=== PATIENT | male | born 1970 | race Caucasian/White ===

== ENCOUNTER 2023-09-19 13:13 | Inpatient (IN) | payer BC, SELFPAY ==
[2023-09-19] VITALS (19 sets, daily range): BP systolic 120–139; BP diastolic 62–88; PULSE 87–93; BMI 27.5; BMI 27.2
--- NOTE | 2023-09-19 09:56 | ED.GENMED ---
History of Present Illness
General
Chief Complaint: Breathing Problem
Source: patient
Exam Limitations: none
Time Seen by Provider: 09/19/23 09:46
Travel History
Have you had any contact with someone who has COVID-19?: No
Do you have any symptoms of coronavirus? Fever > 100 degrees, chills, cough, shortness of breath, sore throat, loss of taste or smell, muscle aches, or headache?: No
History of Present Illness
History of Present Illness:
2 weeks of progressive shortness of breath and fatigue worse with exertion. Some lightheadedness. Has noted some dark stool that started 3 to 4 days ago. Did start iron therapy on his own 2 days ago. Has known anemia. Hemoglobin was 7.7 in
August. He had restarted Humira for his ulcerative colitis. Known obvious bloody stool or mucousy stool. No chest pain.
Past History
Past History
ED Past Medical History: Hypercholesterolemia and Other (Neurocardiogenic Syncope, Ulcerative colitis); Negative Asthma, HTN or NIDDM
ED Past Surgical History: Orthopedic
Social History
Tobacco: Former smoker
Alcohol: Occasional
Personal:
Living: with family
Employment: Employed
Family History
Family History: Other (Noncontributory)
Review of Systems
Review of Systems
All Other Systems: Not applicable
Constitutional: Reports fatigue
Cardiac: Denies chest pain or syncope
ABD/GI: Denies abdominal pain
Phy Exam
Physical Exam
Physical Exam:
GENERAL: Alert and oriented. Mildly winded at rest. Patient just received into the room. Obviously pale
EYE: Orbits normal.
NECK: Supple
CARDIAC: Regular rate and rhythm without any obvious murmurs.
LUNGS: Clear breath sounds,normal
ABDOMEN: Soft, without focal tenderness or distention. Minimal amount of stool but clearly test positive. Slightly dark
NEUROLOGICAL: Alert and oriented , grossly non-focal
SKIN: Warm and dry, very pale
MUSCULOSKELETAL: No edema,no deformity.Good color
PSYCH: Normal and appropriate interaction.
Scores
Heart Failure Risk
Heart Failure Risk Score: Not Applicable
Course
Orders/Labs/Results
Orders:
Orders
09/19/23 09:56
Electrocardiogram (*1) Stat
Reason for Study: Other
Other Reason for Exam: GI Bleed
Cardiac Monitoring- Treatment ONCE
EKG- Treatment ONCE
IV Insert/Care/Rem.- Treatment PRN
Pantoprazole [Protonix IV] 40 mg IV NOW STA
CR Chest - 2 Views Urgent
Comment:
Reason For Exam: sob
Pulse Ox/cont/shift [RESP] Stat
Quantity: 1
09/19/23 10:02
Type+Screen Urgent
Complete Blood Count/With Diff Urgent
Comprehensive Metabolic Panel Urgent
PTT Urgent
Prothrombin Time Urgent
09/19/23 10:50
* Blood Bank Products Urgent
Blood Bank Products: *Packed RBC Leuko(PRBC's)
Quantity: 2
Transfuse Today: Yes
Reason: Anemia
IV Insert/Care/Rem.- Treatment PRN
Abnormal Lab Results
09/19/23
10:02
RBC 2.82 L 10^6/uL
(4.70-6.10)
Hgb 5.4 L* g/dL
(13.0-18.0)
Hct 18.6 L* %
(39.0-52.0)
MCV 66.0 L fL
(80.0-94.0)
MCH 19.1 L pg
(27.0-31.0)
MCHC 29.0 L g/dL
(33.0-37.0)
RDW 17.2 H %
(11.5-14.5)
Plt Count 661 H 10^3/uL
(130-400)
Absolute Monos (auto) 0.9 H 10^3/uL
(0.1-0.6)
Absolute Eos (auto) 0.8 H 10^3/uL
(0-0.7)
Neutrophils % 39.3 L %
(42.2-75.2)
Monocytes % 11.0 H %
(1.7-9.3)
Eosinophils % 9.4 H %
(0-6)
PT 15.4 H Sec
(11.4-14.6)
09/19/23 10:02
09/19/23 10:02
Vital Signs
Initial and Last Documented VS:
Initial Vital Signs
Temp Pulse Resp BP Pulse Ox
98.2 F 93 20 138/71 100
09/19/23 09:42 09/19/23 09:42 09/19/23 09:42 09/19/23 09:42 09/19/23 09:42
Last Documented Vital Signs
Temp Pulse Resp BP Pulse Ox
98.2 F 69 25 131/72 96
09/19/23 09:42 09/19/23 11:15 09/19/23 11:15 09/19/23 10:00 09/19/23 11:15
MDM/Problems Addressed
Differential Diagnosis Includes:
Patient with significant dyspnea on exertion and fatigue purely although cardiac and respiratory etiologies have to be contemplated, highly suspect this is a GI bleed with anemia issue. Stool test positive. Last hemoglobin in August was 7.7.
Patient is very pale. Will give a dose of Protonix. Type and screen. Workup in progress
*Radiology
Radiology exam reviewed: preliminary read by ED provider (Negative) and radiology read reviewed (Negative)
*Pulse Oximetry
Patient hypoxic: no
*EKG
Interpreted by ED Provider?: Yes
Interpretation: normal
Comparison EKG: no changes
Heart Rate: 76
Rate: normal
Rhythm: sinus
[place]: normal axis
Interval: normal interval
QRS Pattern: normal QRS
Ischemia: no ischemia
*Int[employer] Interpretation
Rate: normal
Interpretation: normal
Heart Rate: 77
Rhythm: sinus
*Critical Care Note
Total Time (30-74mins, 75-104mins- exclusive of procedures): 20
Data Reviewed
Review of Other/Old Records Reveals: Labs, Records and Testing
Update Note
Update Note:
Patient with severe symptomatic anemia. PPI ordered. Consent for blood. 2 units of blood ordered.
ED Attending Note
-
Portions of this chart may have been created with voice recognition software.� Occasional wrong word or��sound alike� substitutions may have occurred due to the inherent limitations of voice recognition software.
Discharge Plan
Departure
Patient Disposition: Admit
Date of Disposition: 09/19/23
Time of Disposition: 10:51
Presentation/result/management discussed w/ accepting MD/DO: Hospitalist
Discharge Problem:
Severe symptomatic anemia, UPPER GI BLEED
Prescriptions:
No Action
venlafaxine 150 mg Capsule,Extended Release 24hr
150 mg PO DAILY
bupropion HCl 75 mg Tablet
75 mg PO DAILY
ibuprofen 200 mg Tablet
600 mg PO DAILYPRN PRN (Reason: mild pain)
Humira(CF) Pen 40 mg/0.4 mL pen injector kit
40 mg SC Q2W
Blood Builder Iron Minis
1 tab PO DAILY
Referrals:
Sylvie Hernandez CRNP [Family Provider] -
Interventions
Interventions:
*Risk Screen - Suicide Last Done: 09/19/23 09:52
*General Assessment Last Done: 09/19/23 09:52
*Neglect/Abuse Screening Last Done: 09/19/23 09:52
ED- Fall Risk Assessment Last Done: 09/19/23 09:52
*ED COVID-19 Vaccine History Last Done: 09/19/23 09:42
ED- Cardiac Assessment Last Done: 09/19/23 09:52
ED- Pulmonary Assessment Last Done: 09/19/23 09:52
Discharge Date and Time
Print Language: ROMANSH
[2023-09-19] MEDS: PROTONIX IV 40 MG IV ×2 (10:20→19:57)
[2023-09-19 10:35] LABS: % Basophils 1.4 % (0-2); % Eosinophils 9.4 % (0-6); % Immature Granulocytes 0.5 % (0-0.5); % Lymphocytes 38.4 % (20.5-51.1); % Neutrophils 39.3 % (42.2-75.2); Absolute Basophils 0.1 10^3/uL (0-0.2); Absolute Eosinophils 0.8 10^3/uL (0-0.7); Absolute Lymphocytes 3.2 10^3/uL (1.2-3.4); Absolute Monocytes 0.9 10^3/uL (0.1-0.6); Absolute Neutrophils 3.3 10^3/uL (1.4-6.5); Mean Corpuscular Hgb 19.1 pg (27.0-31.0); Mean Platelet Volume 8.7 fL (7.4-10.4); Nucleated Red Blood Cells % 0.2 % (-); Platelet Count 661 10^3/uL (130-400); Red Blood Cell Count 2.82 10^6/uL (4.70-6.10); Red Cell Dist. Width 17.2 % (11.5-14.5); White Blood Cell Count 8.3 10^3/uL (4.8-10.8)
[2023-09-19 10:39] LABS: Hematocrit 18.6 % (39.0-52.0); Hemoglobin 5.4 g/dL (13.0-18.0)
[2023-09-19 10:44] LABS: ALT (SGPT) 13 U/L (0-50); AST (SGOT) 19 U/L (17-59); Albumin 3.6 g/dl (3.5-5.0); Alkaline Phosphatase 102 U/L (38-126); Blood Urea Nitrogen 11 mg/dl (9-20); Calcium 8.9 mg/dl (8.4-10.2); Carbon Dioxide 22 mmol/L (22-30); Chloride 106 mmol/L (98-107); Estimated Creatinine Clearance 100 ml/min; Glucose 95 mg/dl (70-99); Potassium 4.2 mmol/L (3.5-5.1); Sodium 137 mmol/L (135-145); Total Bilirubin 0.4 mg/dl (0.2-1.3); Total Protein 6.4 g/dl (6.3-8.2); eGFR > 60.00
[2023-09-19 10:49] LABS: INR 1.22; PT 15.4 Sec (11.4-14.6)
[2023-09-19 10:50] LABS: APTT 31.9 Sec (23.4-35.0)
--- NOTE | 2023-09-19 12:26 | CON.GI ---
Addendum entered and electronically signed by David Putnam MD 09/19/23 14:18:
I saw and examined the patient.
The GROUT MACHINE OPERATOR or PA's note was reviewed and I agree with the note.
Comment: 53yo male hx UC previously well controlled on Humira until insurance issues led to interruption for 2 months. During this time he had recurrence of bloody diarrhea. Treated w steroid taper. Restarted Humira x 2 doses. Now presents with
SOB, LEUNG and Hgb 5.4 BMs currently normal w/o bleeding. Denies abd pain. ESR 87.
REC:
Transfuse PRBC
Anemia due to bleeding from interruption of Humira
Check stool r/o infxn
If evidence of ongoing flare sx, restart steroids
Otherwise, continue Humira and f/u with Dr Borrero in the office
Original Note:
Consultation
-
Date/Time Consultation Requested: 09/19/23 1215
Date/Time Consultation Performed: 09/19/23 1225
Requesting Provider: Armand Wild MD
Performing Provider: SHIRLEY Ace, David Putnam MD
Reason for Consultation: anemia hx UC
Medical History
Chief Complaint / HPI
Chief Complaint: shortness of breath
History of Present Illness:
Pt is a 53yo presents with hx esophageal dilation with noted stricture and schatzki's ring in 2021, renal stones, anxiety, depression and ulcerative colitis diagnosed in 2016 with rectal bleeding. He was initially on Lialda and Canasa and switch
to Humira in 2016. Last colonoscopy 2020 with no active disease. He called in August as was off Humira due to insurance issues with paperwork not going through for about 2 months. Pt was recommended stool studies but did not complete and was placed
on steroids. He took for several weeks now off. He restart Humira about 2-3 weeks ago with last dose on Sunday. Pt now presents with shortness of breath and fatigue with noted drop in hbg to 5.4 with MCV 66, platelets 661.
Pt states stool actually now improving. Only one blood stool over last week and stool looked black. He denies NSAID use other than dose yesterday for neck pain. Pt denies dysphagia, GERD, nausea, vomiting, abdominal pain (but feels like may
have hernia with mild discomfort), or constipation. Pt will typically have 2-3 stools per day but noted hourly stools with flare.
Past Medical History
Past Medical History: Psychiatric (anxiety/depression) and Other (ulcerative colitis esophageal stricture, schatzki's ring with prior esophageal dilation 2021, renal stones)
Social History
Tobacco: Non-Smoker
Alcohol: Occasional
Drug: None
Personal:
Living: With Family
Employment: Employed
Family History
Family History: Adopted
Allergies / Home Medications
Allergy/AdvReac Type Severity Reaction Status Date / Time
Penicillins Allergy Unknown Verified 09/19/23 09:44
�Medication �Instructions �Recorded
Blood Builder Iron Minis 1 tab PO DAILY 09/19/23
adalimumab 40 mg/0.4 mL 40 mg SC Q2W 09/19/23
subcutaneous pen kit (Humira(CF)
Pen)
bupropion HCl 75 mg tablet 75 mg PO DAILY 09/19/23
ibuprofen 200 mg tablet 600 mg PO DAILYPRN PRN mild pain 09/19/23
venlafaxine 150 mg 150 mg PO DAILY 09/19/23
capsule,extended release 24 hr
Review of Systems
-
History Source: Patient
Constitutional: Reports Fatigue
EENT: Reports No Symptoms
Respiratory: Reports No Symptoms
Abdomen/GI: Reports Abdominal Pain, Diarrhea, Bloody Stools and Black Stools
Vital Signs
Temp Pulse Resp BP Pulse Ox
98.2 F 87 23 134/71 100
09/19/23 12:07 09/19/23 12:07 09/19/23 12:07 09/19/23 12:07 09/19/23 12:07
Physical Exam
Exam
General: Well Developed, Well Nourished and No Apparent Distress
HEENT: Normocephalic and Anicteric
Respiratory: Clear
Cardiac: Regular Rhythm
GI: Soft, Non Tender and Non Distended
Rectal: Other (dark heme + per ER)
Musculoskeletal: No Clubbing and No Cyanosis
Skin: Warm and Dry
Neuro: Awake, Alert and AO x 3
Psych: Calm
Results
WBC 8.3 10^3/uL (4.8-10.8) 09/19/23 10:02
Hgb 5.4 g/dL (13.0-18.0) L* 09/19/23 10:02
Hct 18.6 % (39.0-52.0) L* 09/19/23 10:02
MCV 66.0 fL (80.0-94.0) L 09/19/23 10:02
Plt Count 661 10^3/uL (130-400) H 09/19/23 10:02
Absolute Neuts (auto) 3.3 10^3/uL (1.4-6.5) 09/19/23 10:02
PT 15.4 Sec (11.4-14.6) H 09/19/23 10:02
INR 1.22 09/19/23 10:02
APTT 31.9 Sec (23.4-35.0) 09/19/23 10:02
Sodium 137 mmol/L (135-145) 09/19/23 10:02
Potassium 4.2 mmol/L (3.5-5.1) 09/19/23 10:02
Chloride 106 mmol/L (98-107) 09/19/23 10:02
Carbon Dioxide 22 mmol/L (22-30) 09/19/23 10:02
BUN 11 mg/dl (9-20) 09/19/23 10:02
Creatinine 0.9 mg/dL (0.7-1.3) 09/19/23 10:02
Calcium 8.9 mg/dl (8.4-10.2) 09/19/23 10:02
Total Bilirubin 0.4 mg/dl (0.2-1.3) 09/19/23 10:02
AST 19 U/L (17-59) 09/19/23 10:02
ALT 13 U/L (0-50) 09/19/23 10:02
Alkaline Phosphatase 102 U/L (38-126) 09/19/23 10:02
Diagnostic Image Results:
2018 CT a/p without
Impression: 2-mm proximal right ureteral stone, with no current evidence of hydronephrosis nor obstruction. New.
Partially calcified nonobstructing right renal stone versus renal mass. A benign proteinaceous cyst certainly is possibility. This would better be evaluated by a non-urgent MRI exam of the kidneys. Probably new. Difficult to be definitive being
the prior study contained IV contrast.
Mild diverticulosis. Stable.
Prior GI Procedures:
EGD: 11/14/21 kelly - Normal mucosa was found in the entire esophagus.
Biopsied for evaluation of eosinophilic esophagitis.
- Low-grade of narrowing, non-obstructing and moderate
Schatzki ring. Dilated with 18 mm Savary device.
- Normal stomach. Biopsied for Helicobacter pylori
testing.
- Normal examined duodenum. Biopsied for evaluation of
celiac disease.
bx reactive gastritis , esophagus mild acanthosis and mild chronic inflammation neg metaplasia, Neg H pylori
Colonoscopy: 04/14/21 salguti - Normal mucosa in the entire examined colon. Several
biopsies were obtained in the rectum, in the sigmoid
colon, in the descending colon, in the transverse
colon and in the ascending colon for evaluation of
inflammatory bowel disease.
- Your ulcerative colitis appears to be in remission.
- Minimal diverticulosis in the sigmoid colon.
bx Quiescent colitis
Assessment / Plan
-
Pt is a 53yo presents with hx esophageal dilation with noted stricture and schatzki's ring in 2021, renal stones, anxiety, depression and ulcerative colitis diagnosed in 2016 with rectal bleeding. He was initially on Lialda and Canasa and switch
to Humira in 2016. Last colonoscopy 2020 with no active disease. He called in August as was off Humira due to insurance issues with paperwork not going through for about 2 months. Pt was recommended stool studies but did not complete and was placed
on steroids. He took steroids for several weeks now off. He restart Humira about 2-3 weeks ago with last dose on Sunday. Pt now presents with shortness of breath and fatigue with noted drop in hbg to 5.4 with MCV 66, platelets 661.
-symptomatic microcytic anemia
-ulcerative colitis with recent lapse of treatment with flare with bloody stools now off steroids and back on Humira
-recent black stools
-thrombocytosis
other medical problems:
esophageal dilation with noted stricture schatzki's ring in 2021
renal stones
anxiety/depression
PLAN:
etiology of anemia related to recent UC flare with lapse in treatment vs other
pt symptoms have been improving
will check stools studies
add fecal nataliya, CRP and ESR(baseline fecal nataliya 62 in January, CRP 2 in November)
monitor symptoms to see if need to restart steroids
11/2022 Humira drug level 4.2 and ab level 44
agree with transfusion, trend hbg
add iron studies, B12, folate to see if benefit from iron
cont PPI
NSAID avoidance
follow up with Dr. Borrero after discharge
will follow
-
-
Thank you for consultation and allowing me to participate in the patient's care. Please call the electronic publications specialist GI physician during the after hours with any questions or concerns.
--- NOTE | 2023-09-19 12:39 | HPS.HSE ---
Family Physician
-
Family Physician: SHIRLEY Weldon
Chief Complaint
-
Exertional shortness of breath and fatigue.
History of Present Illness
Patient has been experiencing exertional shortness of breath, fatigue and lightheadedness for the last 2 weeks.
In ER we discovered he has severe anemia.
Patient has history of ulcerative colitis. In the last 1 to 2 months there was issue with getting Humira on board and he was on steroids because there was a flare. He just finished steroids a week ago.
He does bleed because of ulcerative colitis mostly red blood along with diarrhea but in the last 1 to 2 weeks he started to notice black stools.
No prior history of GI bleed requiring blood transfusion. He has a history of stomach ulcer apparently diagnosed 2 years ago. He does take as needed ibuprofen but not on a daily basis. You use the last 2 days because of the headache.
Medical History
Past Medical History
Past Medical History: Reports Asthma and Other (Ulcerative colitis, neurocardiogenic syncope)
Past Surgical History: Reports Orthopedic (Femur fracture post fall)
Social History
Tobacco: Non-smoker
Alcohol: Occasional
Drug: None
Living: With Family
Employment: Employed
Family History
Family History: Not pertinent
Allergies / Home Medications
Allergies reflects when Allergies were last updated in [email or web address].
Home Medications with original date entered in [email or web address]
Allergy/Medication List:
Allergies
Allergy/AdvReac Type Severity Reaction Status Date / Time
Penicillins Allergy Unknown Verified 09/19/23 09:44
Home Medications
Blood Builder Iron Minis 1 tab PO DAILY 09/19/23
adalimumab 40 mg/0.4 mL subcutaneous pen kit (Humira(CF) Pen) 40 mg SC Q2W 09/19/23
bupropion HCl 75 mg tablet 75 mg PO DAILY 09/19/23
ibuprofen 200 mg tablet 600 mg PO DAILYPRN PRN mild pain 09/19/23
venlafaxine 150 mg capsule,extended release 24 hr 150 mg PO DAILY 09/19/23
Review of Systems
-
A 12 point ROS was completed and negative except as noted: Yes
Physical Exam
Vital Signs
Vital Signs
Temp Pulse Resp BP Pulse Ox
98.2 F 67 18 122/62 98
09/19/23 12:25 09/19/23 12:25 09/19/23 12:25 09/19/23 12:25 09/19/23 12:25
Physical Exam
General: No Apparent Distress
HEENT: Moist mucous membranes
Respiratory: Clear
Cardiac: S1/S2 and Regular Rhythm; No Murmur
GI: Soft, Non Distended, Normal Bowel Sounds and Tender (mild discomfort in llq but no rebound or guarding)
Rectal: Black ( heme testing performed by ER physician)
Neuro: AO x 3
Psych: Calm
Laboratory Results
-
09/19/23 10:02
09/19/23 10:02
Laboratory Results
PT 15.4 Sec (11.4-14.6) H 09/19/23 10:02
INR 1.22 09/19/23 10:02
APTT 31.9 Sec (23.4-35.0) 09/19/23 10:02
Total Bilirubin 0.4 mg/dl (0.2-1.3) 09/19/23 10:02
AST 19 U/L (17-59) 09/19/23 10:02
ALT 13 U/L (0-50) 09/19/23 10:02
Alkaline Phosphatase 102 U/L (38-126) 09/19/23 10:02
Data Reviewed
-
Lab Data: Labs Reviewed by me
Impression/Plan
-
Acute severe symptomatic anemia secondary to GI bleed-transfuse PRBC and follow H&H closely. Check iron studies and replete iron if deficient.
GI bleeding-suspect subacute. Hemodynamically stable. Start on clear liquids diet. Start on a PPI IV twice daily. Consult gastroenterology. Rule out upper GI source based on history.
Thrombocytosis-suspect secondary to anemia; rule out iron deficiency.
Ulcerative colitis without current flare-on Humira as outpatient.
Depression-continue with his home medication.
[2023-09-19 13:27] LABS: Erythrocyte Sed Rate 87 mm/hour (0-20)
[2023-09-19 14:37] LABS: Iron 32 ug/dl (49-181)
[2023-09-19 14:46] LABS: Percent Saturation 7 % (20-50); Total Iron Binding Capacity 448 ug/dl (261-462)
[2023-09-19 15:04] LABS: Ferritin 4.9 ng/ml (17.9-464.0)
[2023-09-19 15:35] LABS: Folate 10.1 ng/ml (2.76-20); Vitamin B12 409 pg/ml (239-931)
[2023-09-19 15:37] LABS: Reticulocyte Count 2.6 % (0.4-2.8)
[2023-09-19] MEDS: NSS (PRESERVATIVE FREE) 10 ML IV (19:57)
[2023-09-20 03:56] VITALS: BP 108/84; BP 118/71; BP 125/76; PULSE 81; PULSE 87; PULSE 92
[2023-09-20 07:55] VITALS: BP 115/77; BP 119/73; BP 99/73; PULSE 68; PULSE 80; PULSE 92
[2023-09-20 08:26] LABS: Hematocrit 25.8 % (39.0-52.0); Mean Corp Hgb Conc. 30.6 g/dL (33.0-37.0); Mean Corpuscular Hgb 21.4 pg (27.0-31.0); Mean Corpuscular Volume 69.7 fL (80.0-94.0); Mean Platelet Volume 8.8 fL (7.4-10.4); Platelet Count 683 10^3/uL (130-400); Red Cell Dist. Width 20.8 % (11.5-14.5); White Blood Cell Count 10.1 10^3/uL (4.8-10.8)
[2023-09-20 08:32] LABS: Hemoglobin 7.9 g/dL (13.0-18.0)
[2023-09-20] MEDS: EFFEXOR XR 150 MG PO (08:32)
[2023-09-20] MEDS: WELLBUTRIN REGULAR RELEASE 75 MG PO (08:32)
[2023-09-20] MEDS: PROTONIX IV 40 MG IV ×2 (08:33→19:15)
[2023-09-20] MEDS: NSS (PRESERVATIVE FREE) 10 ML IV ×2 (08:33→19:15)
[2023-09-20 09:27] LABS: Blood Urea Nitrogen 8 mg/dl (9-20); Carbon Dioxide 23 mmol/L (22-30); Chloride 108 mmol/L (98-107); Estimated Creatinine Clearance 100 ml/min; Glucose 92 mg/dl (70-99); Potassium 4.5 mmol/L (3.5-5.1); Sodium 137 mmol/L (135-145); eGFR > 60.00
--- NOTE | 2023-09-20 09:56 | W.PN.HOSP.TC ---
Today's Communication/Plan
-
Advance diet if no plan for Endo eval
DC planning
Assessment / Plan
Assessment / Plan
Acute severe symptomatic anemia secondary to GI bleed-transfused 2 PRBC with improved HH and symptoms.
Severe iron deficiency - start on IV venofer ; needs to follow with PCP to complete the series of IV iron.
GI bleeding-suspect subacute. Hemodynamically stable. Started on clear liquids diet -tolerating. On PPI IV twice daily - switch/change per GI. GI input noted-will advance diet if no plans for endoscopy eval.
Thrombocytosis-suspect secondary to anemia iron deficiency-follow as outpatient
Ulcerative colitis without current flare-on Humira as outpatient.
Depression-continue with his home medication.
When okay from GI will start a discharge plan.
Anticipated Discharge: Today
Subjective/Interval History
-
Date of Service: September 20, 2023
Patient without any specific complaints today. Tolerating clear liquid diet. No abdominal pain. No diarrhea.
No fever or chills.
Objective Data
-
Labs:
Laboratory Results
09/20/23
07:44
WBC 10.1
Hgb 7.9 L D
Hct 25.8 L
Plt Count 683 H
Sodium 137
Potassium 4.5
Chloride 108 H
Carbon Dioxide 23
BUN 8 L
Creatinine 0.9
Glucose 92
Calcium 9.0
Vital Signs:
Vital Signs
Temp Pulse Resp BP Pulse Ox
98.1 F 68 18 99/73 98
09/20/23 07:55 09/20/23 07:55 09/20/23 07:55 09/20/23 07:55 09/20/23 07:55
I&O
09/19/23 09/20/23 09/21/23
06:59 06:59 06:59
Intake Total 1460 / 1460
Output Total 1720 / 1720
Balance -260 / -260
Review of Systems
-
Constitutional: Denies Fever
EENT: Denies Sore Throat
Respiratory: Denies Cough or Trouble Breathing
Cardiac: Denies Chest Pain
Neuro: Denies Dizzy
Physical Exam
-
General: No Apparent Distress
HEENT: Moist Mucous Membranes
Respiratory: Clear to Auscultation
Cardiac: Regular Rhythm and S1/S2
GI: Soft, Nontender, Nondistended and Normal Bowel Sounds
Neuro: AO x 3
Psych: Calm
Data Reviewed
-
Labs: Labs Reviewed by me
--- NOTE | 2023-09-20 10:55 | W.PN.GI.CBS2 ---
Today's Communication / Plan
-
Feels well. Hgb up to 7.9
Advance diet
OK to dc
F/U with Dr Borrero after d/c to see how he is doing back on Humira
Anemia likely due to flare that occurred while he was off Humira for 2 months
Assessment / Plan
-
Pt is a 53yo presents with hx esophageal dilation with noted stricture and schatzki's ring in 2021, renal stones, anxiety, depression and ulcerative colitis diagnosed in 2016 with rectal bleeding. He was initially on Lialda and Canasa and switch
to Humira in 2016. Last colonoscopy 2020 with no active disease. He called in August as was off Humira due to insurance issues with paperwork not going through for about 2 months. Pt was recommended stool studies but did not complete and was placed
on steroids. He took steroids for several weeks now off. He restart Humira about 2-3 weeks ago with last dose on Sunday. Pt now presents with shortness of breath and fatigue with noted drop in hbg to 5.4 with MCV 66, platelets 661.
-symptomatic microcytic anemia
-ulcerative colitis with recent lapse of treatment with flare with bloody stools now off steroids and back on Humira
-recent black stools
-thrombocytosis
other medical problems:
esophageal dilation with noted stricture schatzki's ring in 2021
renal stones
anxiety/depression
Subjective
Subjective
Date of Service: September 20, 2023
No complaints. Feels better after transfusion
Objective
Data Reviewed
Laboratory Data:
Laboratory Results
09/20/23 07:44
09/20/23 07:44
Laboratory Results
PT 15.4 Sec (11.4-14.6) H 09/19/23 10:02
INR 1.22 09/19/23 10:02
APTT 31.9 Sec (23.4-35.0) 09/19/23 10:02
Total Bilirubin 0.4 mg/dl (0.2-1.3) 09/19/23 10:02
AST 19 U/L (17-59) 09/19/23 10:02
ALT 13 U/L (0-50) 09/19/23 10:02
Alkaline Phosphatase 102 U/L (38-126) 09/19/23 10:02
Vital Signs and I&O:
Vital Signs
Temp Pulse Resp BP Pulse Ox
98.1 F 68 18 99/73 98
09/20/23 07:55 09/20/23 07:55 09/20/23 07:55 09/20/23 07:55 09/20/23 07:55
I&O
09/19/23 09/20/23 09/21/23
06:59 06:59 06:59
Intake Total 1460 / 1460
Output Total 1720 / 1720
Balance -260 / -260
Physical Exam
Physical Exam
GI: Soft, Non Distended and Non Tender
--- NOTE | 2023-09-20 12:24 | PN.CDI ---
CDI
- -
CDI:
Physician Documentation Request
Admit Date: 09/19/23 13:13
Dear Doctor Junito
ED note states pt presented with shortness of breath and fatigue, some lightheadedness. He noted some dark stool starting 3-4 days prior to arrival.
Exam at that time showed slightly dark minimal of stool that was 'clearly test positive'
09/19 GI note states 'ulcerative colitis with recent lapse of treatment with flare with bloody stools now off steroids and back on Humira'
09/19 hospitalist note states 'Ulcerative colitis without current flare'
In an attempt to clarify potential conflicting documentation, please clarify:
ulcerative colitis with flare
ulcerative colitis without flare
Other
Use of terms such as suspected, likely, concern for, or probable (associated with a specific diagnosis that is being evaluated, monitored, or treated as if it exists) are acceptable and can be coded in the inpatient setting, when documented at the
time of discharge.
Thank you,
Samantha Beatty RN, BSN
CDI Specialist
tiger text
Please use your independent medical judgment in providing your response.
[2023-09-20 12:30] VITALS: BP 121/75; BP 125/79; BP 130/82; PULSE 83; PULSE 89; PULSE 92
[2023-09-20] MEDS: FERRLECIT 110 MG IV (13:44)
[2023-09-20 15:55] VITALS: BP 117/71
--- NOTE | 2023-09-20 17:04 | W.DS.TRANS ---
DC Summary - Cargo Service Agent
-
Discharge Instructions:
Discharge Diagnosis/Procedures symptomatic anemia from ulcerative colitis s/p
transfusion; iron deficiency
Diet Regular
Activity As tolerated
Driving Restrictions As prior to admission
Bathing Restrictions None
Blood Work BMP in 1-2 weeks arrange through your PCP
Instructions:
Stand-Alone Forms:
Changes to Home Medications: Yes
Discharge Medications:
DC Medications w/original date entered in [facility]
Blood Builder Iron Minis 1 tab PO DAILY 09/19/23
adalimumab 40 mg/0.4 mL subcutaneous pen kit (Humira(CF) Pen) 40 mg SC Q2W ULCERATIVE COLITIS 09/19/23
bupropion HCl 75 mg tablet 75 mg PO DAILY Mental Health/Anxiety 09/19/23
venlafaxine 150 mg capsule,extended release 24 hr 150 mg PO DAILY Mental Health/Anxiety 09/19/23
Home Medication Changes
DC - ibuprofen
Pending Results: No
[2023-09-20 19:55] VITALS: BP 110/66; BP 117/73; BP 95/68; PULSE 89; PULSE 95
[2023-09-20 23:55] VITALS: BP 107/77; BP 118/76; BP 121/78; PULSE 80; PULSE 81; PULSE 85
[2023-09-21 07:55] VITALS: BP 130/78
[2023-09-21] MEDS: NSS (PRESERVATIVE FREE) 10 ML IV (08:39)
[2023-09-21] MEDS: EFFEXOR XR 150 MG PO (08:39)
[2023-09-21] MEDS: WELLBUTRIN REGULAR RELEASE 75 MG PO (08:39)
[2023-09-21] MEDS: PROTONIX IV 40 MG IV (08:40)
--- NOTE | 2023-09-21 09:45 | W.PN.HOSP.TC ---
Addendum entered and electronically signed by Elyse Grant MD 09/21/23 11:32:
note should read--UC with flare
Original Note:
Today's Communication/Plan
-
d/c
Assessment / Plan
Assessment / Plan
Acute severe symptomatic anemia secondary to GI bleed-transfused 2 PRBC with improved HH and symptoms.
Severe iron deficiency - start on IV venofer ; needs to follow with PCP to complete the series of IV iron.
GI bleeding-suspect subacute. Hemodynamically stable. Started on clear liquids diet -tolerating. On PPI IV twice daily - switch/change per GI. GI input noted-will advance diet if no plans for endoscopy eval.
Thrombocytosis-suspect secondary to anemia iron deficiency-follow as outpatient
Ulcerative colitis without current flare-on Humira as outpatient.
Depression-continue with his home medication.
GI cleared for d/c 09/19--no order placed--d/c today
Anticipated Discharge: Today
Subjective/Interval History
-
Date of Service: September 21, 2023
pt was supposed to be d/c 09/19--no order was placed so pt stayed overnight
Objective Data
-
Vital Signs:
max temp for 24 hours
09/20/23
15:55
Temp 98.2 F
Vital Signs
Temp Pulse Resp BP Pulse Ox
98.0 F 60 18 130/78 94
09/21/23 07:55 09/21/23 07:55 09/21/23 07:55 09/21/23 07:55 09/21/23 07:55
I&O
09/20/23 09/21/23 09/22/23
06:59 06:59 06:59
Intake Total 1460 / 1460 1260 / 1260
Output Total 1720 / 1720 1930 / 1930
Balance -260 / -260 -670 / -670
Review of Systems
-
All other systems: Reviewed and negative
Physical Exam
-
Respiratory: Clear to Auscultation; Negative Wheezes or Rhonchi
Cardiac: Regular Rhythm and S1/S2; Negative Murmur
GI: Soft, Nontender, Nondistended and Normal Bowel Sounds
--- NOTE | 2023-09-21 10:21 | PN.CDI ---
CDI
- -
CDI:
Physician Documentation Request
Admit Date: 09/19/23 13:13
Dear Doctor Juanita,
ED note states pt presented with shortness of breath and fatigue, some lightheadedness. He noted some dark stool starting 3-4 days prior to arrival.
Exam at that time showed slightly dark minimal of stool that was 'clearly test positive'
09/19 GI note states 'ulcerative colitis with recent lapse of treatment with flare with bloody stools now off steroids and back on Humira'
09/20 hospitalist note states 'Ulcerative colitis without current flare'
In an attempt to clarify potential conflicting documentation, please clarify:
ulcerative colitis with flare
ulcerative colitis without flare
Other
Use of terms such as suspected, likely, concern for, or probable (associated with a specific diagnosis that is being evaluated, monitored, or treated as if it exists) are acceptable and can be coded in the inpatient setting, when documented at the
time of discharge.
Thank you,
Samantha Beatty RN, BSN
CDI Specialist
tiger text
Please use your independent medical judgment in providing your response.
[2023-09-21 12:04] VITALS: BP 112/62
--- NOTE | 2023-09-21 12:13 | W.PN.GI.CBS2 ---
Today's Communication / Plan
-
OK for DC and f/u with Dr. Borrero as OP
Assessment / Plan
-
Pt is a 53yo presents with hx esophageal dilation with noted stricture and schatzki's ring in 2021, renal stones, anxiety, depression and ulcerative colitis diagnosed in 2016 with rectal bleeding. He was initially on Lialda and Canasa and switch
to Humira in 2016. Last colonoscopy 2020 with no active disease. He called in August as was off Humira due to insurance issues with paperwork not going through for about 2 months. Pt was recommended stool studies but did not complete and was placed
on steroids. He took steroids for several weeks now off. He restart Humira about 2-3 weeks ago with last dose on Sunday. Pt now presents with shortness of breath and fatigue with noted drop in hbg to 5.4 with MCV 66, platelets 661.
-symptomatic microcytic anemia
-ulcerative colitis with recent lapse of treatment with flare with bloody stools now off steroids and back on Humira
-recent black stools
-thrombocytosis
other medical problems:
esophageal dilation with noted stricture schatzki's ring in 2021
renal stones
anxiety/depression
PLAN:
etiology of anemia related to recent UC flare with rectal bleeding with lapse in treatment vs other
pt symptoms have improved
Stool studies negative for infection
11/2022 Humira drug level 4.2 and ab level 44
will need repeat drug levels and antibody levels checked and if he still has had elevated antibody levels may need to switch biologic especially if the drug level is subtherapeutic.
Will follow-up with Dr. Borrero as OP to have follow-up labs and may also need repeat endoscopic evaluation.
NSAID avoidance
OK for DC
Subjective
Subjective
Date of Service: September 21, 2023
Currently having no symptoms of flare, no rectal bleeding or diarrhea. Hemoglobin improved markedly after transfusion. Hemoglobin went up from 5.4-7.9 with 2 units PRBC. He also received IV iron infusions
Objective
Data Reviewed
Laboratory Data:
Laboratory Results
09/20/23 07:44
09/20/23 07:44
Laboratory Results
PT 15.4 Sec (11.4-14.6) H 09/19/23 10:02
INR 1.22 09/19/23 10:02
APTT 31.9 Sec (23.4-35.0) 09/19/23 10:02
Total Bilirubin 0.4 mg/dl (0.2-1.3) 09/19/23 10:02
AST 19 U/L (17-59) 09/19/23 10:02
ALT 13 U/L (0-50) 09/19/23 10:02
Alkaline Phosphatase 102 U/L (38-126) 09/19/23 10:02
Vital Signs and I&O:
Vital Signs
Temp Pulse Resp BP Pulse Ox
98.0 F 60 18 130/78 96
09/21/23 07:55 09/21/23 07:55 09/21/23 07:55 09/21/23 07:55 09/21/23 10:52
I&O
09/20/23 09/21/23 09/22/23
06:59 06:59 06:59
Intake Total 1460 / 1460 1260 / 1260
Output Total 1720 / 1720 1930 / 1930
Balance -260 / -260 -670 / -670
Physical Exam
Physical Exam
Cardiology: Normal Sinus Rhythm
Pulmonary: Clear
GI: Soft, Non Distended, Non Tender and Normal Bowel Sounds
--- NOTE | 2023-09-21 12:46 | PTCARENOTE ---
Discharge - Patient will need iron infusions set up at home. Contacted senior case manager and senior case manager contacted GI service and hospitalist. IV iron infusions will be set up by PCP. Patient is aware. Patient completed medical record release for
primary care provider and it will be sent to medical records for release. Peripheral IVs removed. Reviewed all discharge instructions with patient. Patient aware that he needs a follow up with his primary in one to two weeks and blood work. Patient
denies questions at this time. Left via wheelchair with staff escort.
--- NOTE | 2023-09-21 18:26 | CM ---
met with patient at bedside.patient lives with and children in house with 2steps to entrer,his bed and bath is on the second level.he amb i and is i with his adl.he hs no dme,has never had a vn or been to ip rehab,dr linda is his pcp and he
gets his meds from [facility].patient is adm with hx of recent uc is adm with gi bleed.he is sp 2 units prbc.he had iv iron infusions.patient is stable to dc home with no needs.floor nurse told cm patient needs iv infusion set up.i contacted
both gi doctor and attending who related patient will have iv iron infusion scheduled by his pcp if needed.family to transport home.
== END 2023-09-21 12:55 | disposition home or self-care (01) | DRG 386 ==
LOC: 4 EAST ACU 13:13
PROVIDERS: ADMITTING PHYSICIAN Internal Medicine; ATTENDING PHYSICIAN Internal Medicine; EMERGENCY PHYSICIAN Emergency Medicine; FAMILY PHYSICIAN Nurse Practitioner Adult Health; OTHER PHYSICIAN Specialist
PROC: 30233N1 Transfusion of Nonautologous Red Blood Cells into Peripheral Vein, Percutaneous Approach (ICD-10-PCS; 2023-09-19)
DX: K51.911 Ulcerative colitis, unspecified with rectal bleeding (principal); D62 Acute posthemorrhagic anemia; N20.1 Calculus of ureter; E78.00 Pure hypercholesterolemia, unspecified; F41.9 Anxiety disorder, unspecified; K22.2 Esophageal obstruction; K57.30 Diverticulosis of large intestine without perforation or abscess without bleeding; K29.70 Gastritis, unspecified, without bleeding; D75.839 Thrombocytosis, unspecified; F32.A Depression, unspecified; Z87.891 Personal history of nicotine dependence; Z88.0 Allergy status to penicillin; Z87.442 Personal history of urinary calculi
CPT/HCPCS: 36430; 71046; 80048; 80053; 82607; 82728; 82746; 83540; 83550; 85025; 85027; 85045; 85610; 85652; 85730; 86140; 86850; 86900; 86901; 86920; 93005; 96374; 99285; J2916; P9016

== ENCOUNTER → 2024-03-10 06:30 | Day surgery (SDC) | payer BC, SELFPAY | LOC: GI 06:30 | PROVIDERS: ATTENDING PHYSICIAN Internal Medicine Gastroenterology | DX: K25.9 Gastric ulcer, unspecified as acute or chronic, without hemorrhage or perforation (principal); K51.50 Left sided colitis without complications; R13.10 Dysphagia, unspecified; K22.2 Esophageal obstruction; K44.9 Diaphragmatic hernia without obstruction or gangrene; Q39.9 Congenital malformation of esophagus, unspecified; K52.89 Other specified noninfective gastroenteritis and colitis; K29.50 Unspecified chronic gastritis without bleeding; K31.89 Other diseases of stomach and duodenum | CPT/HCPCS: 45380; 43249; 88305 ==